=== PATIENT | male | born 1990 | race Caucasian/White ===

== ENCOUNTER 2021-10-12 16:34 | Emergency (ER) | payer OTHER ==
[2021-10-12] MEDS ORDERED: METHOCARBAMOL 500 MG TABLET PO ONE ×2 (16:43→17:51)
[2021-10-12] MEDS ORDERED: KETOROLAC TROMETHAMINE 30 MG/1 ML VIAL IM ONE (16:43)
[2021-10-12] MEDS ORDERED: ACETAMINOPHEN 325 MG TABLET (FP) PO ONE (16:43)
[2021-10-12] MEDS ORDERED: LIDOCAINE 5% TOPICAL PATCH TP ONE (16:43)
[2021-10-12] MEDS ORDERED: ACETAMINOPHEN 325 MG TABLET (FP) ONE (16:50)
[2021-10-12] MEDS ORDERED: KETOROLAC TROMETHAMINE 30 MG/1 ML VIAL ONE (16:50)
[2021-10-12] MEDS ORDERED: METHOCARBAMOL 500 MG TABLET ONE ×2 (16:50→17:53)
[2021-10-12] MEDS ORDERED: LIDOCAINE 5% TOPICAL PATCH ONE (16:50)
[2021-10-12 16:59] VITALS: BP 110/58; PULSE 75; TEMP 98.4; BMI 42.5
[2021-10-12] MEDS ORDERED: predniSONE 20 MG TABLET (UD) PO ONE (17:28)
[2021-10-12] MEDS ORDERED: predniSONE 20 MG TABLET (UD) ONE (17:49)
[2021-10-12] MEDS ORDERED: predniSONE 10 MG TABLET (UD) ONE (17:49)
[2021-10-12] MEDS ORDERED: LIDOCAINE PATCH REMOVAL MC SCH (22:00)
== END 2021-10-12 18:40 | disposition home or self-care (01) ==
LOC: FER 16:34
PROC: 3E023GC Introduction of Other Therapeutic Substance into Muscle, Percutaneous Approach (ICD-10-PCS; principal; 2021-10-12)
DX: M54.50 Low back pain, unspecified (principal)
CPT/HCPCS: 96372; 99284-25

== ENCOUNTER 2021-11-13 21:15 | Emergency (ER) | payer OTHER ==
[2021-11-13 21:33] VITALS: BP 143/67; PULSE 113; TEMP 102.7; BMI 42.2
[2021-11-13] MEDS ORDERED: ACETAMINOPHEN 500 MG TABLET (FP) PO ONE (21:39)
[2021-11-13] MEDS ORDERED: ACETAMINOPHEN 500 MG TABLET (FP) ONE (21:40)
[2021-11-15 14:10] LABS: SARS-CoV-2 NAA Not Detected (Not Detected)
== END 2021-11-13 21:48 | disposition home or self-care (01) ==
LOC: FER 21:15
DX: J06.9 Acute upper respiratory infection, unspecified (principal); J09.X2 Influenza due to identified novel influenza A virus with other respiratory manifestations
CPT/HCPCS: 87804; 99283-25; C9803-CS; U0003; U0005

== ENCOUNTER 2022-02-19 09:41 | Emergency (ER) | payer OTHER ==
[2022-02-19 09:58] VITALS: BP 137/79; PULSE 18; RESP 80; TEMP 98.7; BMI 43.0
[2022-02-19] MEDS ORDERED: LIDOCAINE 5% TOPICAL PATCH TP ONE (10:02)
[2022-02-19] MEDS ORDERED: METHOCARBAMOL 500 MG TABLET PO ONE (10:02)
[2022-02-19] MEDS ORDERED: KETOROLAC TROMETHAMINE 30 MG/1 ML VIAL IM ONE (10:02)
[2022-02-19] MEDS ORDERED: KETOROLAC TROMETHAMINE 30 MG/1 ML VIAL ONE (10:07)
[2022-02-19] MEDS ORDERED: LIDOCAINE 5% TOPICAL PATCH ONE (10:07)
[2022-02-19] MEDS ORDERED: METHOCARBAMOL 500 MG TABLET ONE (10:07)
[2022-02-19] MEDS ORDERED: LIDOCAINE PATCH REMOVAL MC SCH (22:00)
== END 2022-02-19 10:52 | disposition home or self-care (01) ==
LOC: FER 09:41
PROC: 3E0233Z Introduction of Anti-inflammatory into Muscle, Percutaneous Approach (ICD-10-PCS; principal; 2022-02-19)
DX: M54.50 Low back pain, unspecified (principal)
CPT/HCPCS: 99284-25